=== PATIENT | female | born 1970 | race Caucasian/White ===

== ENCOUNTER 2018-04-11 10:43 | Emergency (ER) | END 2018-04-11 12:35 | disposition home or self-care (01) ==

== ENCOUNTER 2018-05-24 11:44 | Emergency (ER) | END 2018-05-24 15:50 | disposition left against medical advice (07) ==

== ENCOUNTER 2018-05-28 16:54 | Emergency (ER) | END 2018-05-28 18:59 | disposition home or self-care (01) ==

== ENCOUNTER 2018-06-14 19:37 | Emergency (ER) | END 2018-06-14 23:50 | disposition home or self-care (01) ==

== ENCOUNTER 2018-08-21 17:30 | Emergency (ER) | payer MEDICAID, OTHER ==
[~2018-08-21] VITALS: Wt 100.0 kg
[~2018-08-21 17:30] MED LIST: ACET1TAB40 PO; DIAZ5TAB PO; IBUP-1542 PO; OXYC-279 PO; TRAM50TA2 PO
[2018-08-21] MEDS ORDERED: METOPROLOL (XL) 50 MG TAB PO ONE (18:00)
--- NOTE | 2018-08-21 18:11 | ERD ---
ER Documentation Chief Complaint Chief Complaint BIB RA FROM HOME FOR PALPITATIONS, GIVEN 18 MG ADENOSINE AND CONVERT. HPI This is a 48-year-old female here for SVT/palpitations. The patient was watching TV when she suddenly felt palpitations start. The patient has a history of SVT first episode was 6 months ago and this felt similar so she called the paramedics. They arrived she was in SVT heart rate 170s. She was given 6 mg of adenosine followed by 12 mg of adenosine that converted her to sinus tachycardia with a heart rate 114. The patient had no chest pain or shortness of breath. The patient is not on any blood thinners or medications for SVT. The patient drinks to 16 ounces of [employer] energy drinks every day, sh e also smokes weed every day, denies any other drugs. Currently she is asymptomatic but seems a little anxious ROS All systems reviewed and are negative except as per history of present illness. Medications Home Meds Active Scripts Diazepam* (Valium*) 5 Mg Tablet, 5 MG PO Q8 PRN for MUSCLE SPASMS, #10 TAB Prov:HARLAN MONREAL NP 06/14/18 Oxycodone HCl/Acetaminophen (Percocet 5-325 mg Tablet) 1 Each Tablet, 1 EACH PO Q6, #7 TAB Prov:HARLAN MONREAL NP 06/14/18 Acetaminophen with Codeine (Acetaminophen-Cod #3 Tablet) 1 Each Tablet, 1 TAB PO Q6H PRN for PAIN, #10 TAB Prov:KEVIN MCKINLEY MD 05/28/18 Ibuprofen* (Motrin*) 600 Mg Tab, 600 MG PO Q6, #20 TAB Prov:KEVIN MCKINLEY MD 05/28/18 Tramadol HCl (Tramadol HCl) 50 Mg Tablet, 50 MG PO Q6 PRN for PAIN, #10 TAB Prov:MARCOS ALVAREZ PA-C 04/11/18 Allergies Allergies: Coded Allergies: levofloxacin (Verified Allergy, Unknown, 04/11/18) sulfamethoxazole (Verified Allergy, Unknown, vomit, 04/11/18) trimethoprim (Verified Allergy, Unknown, vomit, 04/11/18) PMhx/Soc History of Surgery: Yes (THYROID) Anesthesia Reaction: No Hx Neurological Disorder: No Hx Respiratory Disorders: Yes (ASTHMA) Hx Cardiac Disorders: No Hx Psychiatric Problems: No Hx Miscellaneous Medical Probl: Yes (Chronic neck, back, spine see pain management) Hx Alcohol Use: No Hx Substance Use: Yes (marijuana) Hx Tobacco Use: Yes (a pack a day) Smoking Status: Never smoker FmHx Family History: No coronary disease Physical Exam Vitals Vital Signs Date Temp Pulse Resp B/P (MAP) Pulse Ox O2 O2 Flow FiO2 Time Delivery Rate 08/21/18 122 19 112/78 100 Room Air 18:13 (89) 08/21/18 Nasal 17:43 Cannula 08/21/18 98.1 110 19 108/86 100 Room Air 17:40 (93) 08/21/18 98.1 115 19 108/86 100 17:39 (93) Physical Exam C const: Well-developed, well-nourished Head: Atraumatic, normocephalic Eyes: Normal Conjunctiva, PERRLA, EOMI, normal sclera, no nystagmus ENT: Normal External Ears, Nose and Mouth, moist mucus membranes. Neck: Full range of motion. No meningismus, no lymphadenopathy. Resp: Clear to auscultation bilaterally, no wheezing, rhonchi, rales Cardio: Sinus tachycardia, no murmurs, S1 S2 present] Abd: Soft, non tender x 4, non distended. Normal bowel sounds, no guarding or rebound, no pulsitile abdominal masses or bruits Skin: No petechiae or rashes, no ecchymosis , no maculopapular rash Back: No midline or flank tenderness Ext: No cyanosis, or edema, FROM x 4, normal inspection, neurovascularly intact x 4 Neur: Awake and alert, STR 5/5 x 4, sensation intact x 4, no focal findings, cerebellum intact Psych: Slightly anxious Result Diagram: 08/21/18 1739 08/21/18 173 Results 24 hrs Laboratory Tests Test 08/21/18 17:39 White Blood Count 8.6 10^3/ul Red Blood Count 4.87 10^6/ul Hemoglobin 14.6 g/dl Hematocrit 42.4 % Mean Corpuscular Volume 87.1 fl Mean Corpuscular Hemoglobin 30.0 pg Mean Corpuscular Hemoglobin Concent 34.4 g/dl Red Cell Distribution Width 12.6 % Platelet Count 325 10^3/UL Mean Platelet Volume 10.1 fl Immature Granulocytes % 0.300 % Neutrophils % 54.8 % Lymphocytes % 35.7 % Monocytes % 5.1 % Eosinophils % 3.3 % Basophils % 0.8 % Nucleated Red Blood Cells % 0.0 /100WBC Immature Granulocytes # 0.030 10^3/ul Neutrophils # 4.7 10^3/ul Lymphocytes # 3.1 10^3/ul Monocytes # 0.4 10^3/ul Eosinophils # 0.3 10^3/ul Basophils # 0.1 10^3/ul Nucleated Red Blood Cells # 0.0 10^3/ul Sodium Level 138 mmol/L Potassium Level 3.4 mmol/L Chloride Level 108 mmol/L Carbon Dioxide Level 22 mmol/L Anion Gap 8 Blood Urea Nitrogen 13 mg/dl Creatinine 0.97 mg/dl Est Glomerular Filtrat Rate mL/min > 60 mL/min Glucose Level 142 mg/dl Calcium Level 9.4 mg/dl Troponin I < 0.012 ng/ml Current Medications Medications Dose Sig/Leobardo Start Time Status Last (Trade) Ordered Route PRN Stop Time Admin Dose Reason Admin Metoprolol 50 mg ONCE ONCE 08/21/18 DC 08/21/18 Succinate PO 18:00 18:01 (Toprol Xl) 08/21/18 18:01 Lorazepam 1 mg ONCE ONCE 08/21/18 DC 08/21/18 (Ativan) IV 18:30 18:21 08/21/18 18:31 Procedures/MDM EKG: Rate/Rhythm: Sinus tachycardia heart rate 111 QRS, ST, QT: NORMAL [place], QRS, QT] Impression: Abnormal EKG MR #: [id number] DOS: 08/21/18 174 Ordering MD: ELAN FRIEND DO Location: E/R Room/Bed: PROCEDURE: One view chest radiograph. CLINICAL INDICATION: Chest pain. TECHNIQUE: An AP view of the chest was obtained. COMPARISON: None. FINDINGS: Mediastinum: Unremarkable. Heart size: Normal. Pulmonary vasculature: No visible engorgement. Lungs: Clear. Costophrenic sulci: Clear. Bony structures: Grossly unremarkable for age. IMPRESSION: 1. Unremarkable single view chest. RPTAT:AAJJ Physician Arjun Date Time Electronically viewed and signed by Merissa Olmos Physician on 08/21/2018 18:19 GW/ CC: ELAN FRIEND DO [id number] The patient's labs are unremarkable. I feel her symptoms are due to excess caffeine use and marijuana. We discussed her changing her lifestyle rather than put her on medication at this point. Patient feels much better at this time, and vital signs are normal, symptoms have improved. I did give strict instructions to return to the ED if symptoms continue or worsen, patient will otherwise follow-up with primary care physician. Patient understood instructions and agreed to plan. Disclaimer: Inadvertent spelling and grammatical errors are likely due to EHR/dictation software use and do not reflect on the overall quality of patient care. Also, please note that the electronic time recorded on this note does not necessarily reflect the actual time of the patient encounter. Departure Diagnosis: Primary Impression: SVT (supraventricular tachycardia) Condition: Stable ELAN FRIEND DO Aug 21, 2018 18:11
[2018-08-21] MEDS ORDERED: LORAZEPAM 2 MG INJ IV ONE (18:30)
[2018-08-21 19:45] VITALS: BP 91/62; PULSE 104; RESP 18
== END 2018-08-21 19:50 | disposition home or self-care (01) ==
LOC: E/R 17:30
DX: I47.1 Supraventricular tachycardia (principal); J45.909 Unspecified asthma, uncomplicated; Z87.891 Personal history of nicotine dependence
CPT/HCPCS: 36415; 71045; 80048; 84484; 85025; 93005; 96374; J2060; Z7502; Z7610

== ENCOUNTER 2018-10-27 22:31 | Emergency (ER) | payer OTHER ==
[~2018-10-27] VITALS: Ht 157.5 cm; Wt 90.0 kg
[2018-10-27 22:35] VITALS: Ht 157.5 cm; Wt 90.0 kg
[2018-10-27] MEDS ORDERED: SOD CHLORIDE 0.9% 1,000 ML IV STA (22:35)
--- NOTE | 2018-10-27 22:47 | ERD ---
ER Documentation Chief Complaint Chief Complaint BIB RA FROM HOME FOR SVT, RESOLVED EN ROUTE, GIVEN 6/12 OF ADENOSINE HPI 48-year-old female who presents to the emergency room with SVT. The patient has a known history of SVT. Just prior to arrival she is felt palpitations and called 911. EMS provided 6 mg then 12 mg of adenosine with cardioversion. The patient is sinus tachycardia upon arrival. The patient does admit to smoking marijuana, significant social stressors. She has not been able to follow-up with her primary care physician or scrub technician during this timeframe. She denied any chest pain or pressure. No fevers or chills. ROS All systems reviewed and are negative except as per history of present illness. Medications Home Meds Active Scripts Diazepam* (Valium*) 5 Mg Tablet, 5 MG PO Q8 PRN for MUSCLE SPASMS, #10 TAB Prov:HARLAN MONREAL NP 06/14/18 Oxycodone HCl/Acetaminophen (Percocet 5-325 mg Tablet) 1 Each Tablet, 1 EACH PO Q6, #7 TAB Prov:HARLAN MONREAL NP 06/14/18 Acetaminophen with Codeine (Acetaminophen-Cod #3 Tablet) 1 Each Tablet, 1 TAB PO Q6H PRN for PAIN, #10 TAB Prov:KEVIN MCKINLEY MD 05/28/18 Ibuprofen* (Motrin*) 600 Mg Tab, 600 MG PO Q6, #20 TAB Prov:KEVIN MCKINLEY MD 05/28/18 Tramadol HCl (Tramadol HCl) 50 Mg Tablet, 50 MG PO Q6 PRN for PAIN, #10 TAB Prov:MARCOS ALVAREZ PA-C 04/11/18 Allergies Allergies: Coded Allergies: levofloxacin (Verified Allergy, Unknown, 04/11/18) sulfamethoxazole (Verified Allergy, Unknown, vomit, 04/11/18) trimethoprim (Verified Allergy, Unknown, vomit, 04/11/18) PMhx/Soc History of Surgery: Yes (THYROID) Anesthesia Reaction: No Hx Neurological Disorder: No Hx Respiratory Disorders: Yes (ASTHMA) Hx Cardiac Disorders: No Hx Psychiatric Problems: No Hx Miscellaneous Medical Probl: Yes (Chronic neck, back, spine see pain management) Hx Alcohol Use: No Hx Substance Use: Yes (marijuana) Hx Tobacco Use: Yes (a pack a day) FmHx Family History: No diabetes Physical Exam Vitals Vital Signs Date Temp Pulse Resp B/P (MAP) Pulse Ox O2 O2 Flow FiO2 Time Delivery Rate 10/27/18 98.7 112 19 121/91 98 22:45 (101) 10/27/18 98.7 112 19 121/91 98 22:35 (101) Physical Exam General: Well developed, well nourished, no acute distress Head: Normocephalic, atraumatic. Eyes: Pupils equally reactive, EOM intact ENT: Moist mucous membranes Neck: Supple, no lymphadenopathy Respiratory: Lungs clear bilaterally, no distress Cardiovascular: Slight tachycardia, no murmurs, rubs, or gallops Abdominal: Soft, non-tender, non-distended, no peritoneal signs : Deferred MSK: No edema, no unilateral swelling, 5/5 strength Neurologic: Alert and oriented, moving all extremities, normal speech, no focal weakness, no cerebellar signs Skin: No rash Psych: Normal mood Result Diagram: 10/27/18 2310 Results 24 hrs Laboratory Tests Test 10/27/18 23:10 Sodium Level 143 mmol/L Potassium Level 3.4 mmol/L Chloride Level 111 mmol/L Carbon Dioxide Level 25 mmol/L Anion Gap 7 Blood Urea Nitrogen 11 mg/dl Creatinine 0.88 mg/dl Est Glomerular Filtrat Rate mL/min > 60 mL/min Glucose Level 82 mg/dl Calcium Level 9.1 mg/dl Magnesium Level 1.9 mg/dl Current Medications Medications Dose Sig/Leobardo Start Time Status Last (Trade) Ordered Route PRN Stop Time Admin Dose Reason Admin Sodium 1,000 ml @ Q1H STAT 10/27/18 DC Chloride 1,000 mls/hr IV 22:35 10/27/18 23:34 Lorazepam 1 mg ONCE ONCE 10/28/18 DC 10/28/18 (Ativan) IV 00:00 10/28/18 00:03 00:01 Potassium 20 meq ONCE STAT 10/28/18 DC Chloride PO 00:15 10/28/18 (Klor-Con 20) 00:17 Procedures/MDM EKG, MONITORS, & DIAGNOSTIC IMAGING: Rhythm strip: Via EMS Rate/Rhythm: SVT with conversion to normal sinus rhythm Impression: SVT with conversion EKG: I reviewed and interpreted a 12-lead EKG. Rhythm: sinus tachycardia ST Changes: No contiguous ST segment elevations T waves: No contiguous T wave inversions Impression: No evidence of acute cardiac ischemia LAB INTERPRETATION: I reviewed the laboratory testing and it shows slightly low potassium MEDICAL DECISION MAKING: The patient's presentation is consistent with an exacerbation of SVT with conversion secondary to adenosine via EMS. Patient is asymptomatic currently. Possible triggers including stress, underlying reentrant tachycardia. Patient exhibits no chest pain, no signs or symptoms concerning for cardiac ischemia. The patient is to follow-up with a scrub technician and is currently in the process of doing so. The patient has no evidence of endorgan dysfunction. I believe checking electrolytes will be appropriate for any replacement therapy needed. No indication for troponin, chest x-ray therapy. No signs of infection no indication for CBC. No evidence of anemia. Risk reduction techniques discussed. ER COURSE: * Patient asked for anxiolysis. Ativan provided. Vital signs improved. Patient given oral potassium. * At this point the patient can be safely discharged with outpatient primary care follow-up. I do not feel comfortable initiating beta-neto therapy. The patient needs to be followed up with primary scrub technician. Return precautions discussed and understood. CONSULTATION: None DISPOSITION PLAN: The patient does not have an identifiable emergent medical condition that warrants inpatient hospitalization at this time. The patient is deemed safe for discharge with outpatient follow-up. We discussed follow up with the patient's primary care doctor within 24 to 48 hours as needed. We also discussed return to the emergency room for worsening symptoms or worsening condition. Outpatient referral: Cardiology Discharge Medications: None required Departure Diagnosis: Primary Impression: SVT (supraventricular tachycardia) Additional Impression: Hypokalemia Condition: Stable BORIS MARTIN MD October 27, 2018 22:47
[2018-10-28] MEDS ORDERED: LORAZEPAM 2 MG INJ IV ONE
[2018-10-28] MEDS ORDERED: POTASSIUM CHLORIDE (SR) 20 MEQ TAB PO STA (00:15)
[2018-10-28 00:38] VITALS: BP 145/78; PULSE 88; RESP 16
== END 2018-10-28 00:43 | disposition home or self-care (01) ==
LOC: E/R 22:31
DX: I47.1 Supraventricular tachycardia (principal); J45.909 Unspecified asthma, uncomplicated; F17.210 Nicotine dependence, cigarettes, uncomplicated; E87.6 Hypokalemia
CPT/HCPCS: 80048; 83735; 93005; 96374; J2060; J7030; Z7502; Z7610

== ENCOUNTER 2018-10-31 14:33 | Emergency (ER) | payer OTHER ==
[~2018-10-31] VITALS: Ht 165.1 cm; Wt 90.0 kg
[2018-10-31 14:41] VITALS: Ht 165.1 cm; Wt 90.0 kg
[2018-10-31] MEDS ORDERED: SOD CHLORIDE 0.9% 1,000 ML IV STA (14:51)
[2018-10-31] MEDS ORDERED: morphine 4 MG/ML VIAL IV STA (14:51)
[2018-10-31] MEDS ORDERED: ONDANSETRON 4 MG INJ IV STA ×2 (14:51→16:11)
[2018-10-31] MEDS ORDERED: LORAZEPAM 2 MG INJ IV ONE (15:00)
[2018-10-31] MEDS ORDERED: HYDROmorphONE 1 MG/ML SYG IV STA (16:11)
--- NOTE | 2018-10-31 16:15 | ERD ---
ER Documentation Chief Complaint Chief Complaint SVT, CONVERTED EN ROUTE TO H HPI This is a 48-year-old female who has a history of SVT with multiple exacerbations and has been here multiple times for the same. She says she is not on any medication. She states that she was laying in bed and she rolled over and she felt her heart racing and she called paramedics who found her in SVT. She was given adenosine with conversion to a normal sinus rhythm/sinus tachycardia. The patient denied having any chest pain or breathing difficulty. She says she is feeling anxious at this time and has a headache from the adenosine ROS All systems reviewed and are negative except as per history of present illness. Medications Home Meds Discontinued Scripts Diazepam* (Valium*) 5 Mg Tablet, 5 MG PO Q8 PRN for MUSCLE SPASMS, #10 TAB Prov:HARLAN MONREAL NP 06/14/18 Oxycodone HCl/Acetaminophen (Percocet 5-325 mg Tablet) 1 Each Tablet, 1 EACH PO Q6, #7 TAB Prov:HARLAN MONREAL NP 06/14/18 Acetaminophen with Codeine (Acetaminophen-Cod #3 Tablet) 1 Each Tablet, 1 TAB PO Q6H PRN for PAIN, #10 TAB Prov:KEVIN MCKINLEY MD 05/28/18 Ibuprofen* (Motrin*) 600 Mg Tab, 600 MG PO Q6, #20 TAB Prov:KEVIN MCKINLEY MD 05/28/18 Tramadol HCl (Tramadol HCl) 50 Mg Tablet, 50 MG PO Q6 PRN for PAIN, #10 TAB Prov:MARCOS ALVAREZ PA-C 04/11/18 Allergies Allergies: Coded Allergies: levofloxacin (Unverified Allergy, Unknown, 10/28/18) sulfamethoxazole (Unverified Allergy, Unknown, vomit, 10/28/18) trimethoprim (Unverified Allergy, Unknown, vomit, 10/28/18) PMhx/Soc History of Surgery: Yes (THYROID) Anesthesia Reaction: No Hx Neurological Disorder: No Hx Respiratory Disorders: Yes (ASTHMA) Hx Cardiac Disorders: No Hx Psychiatric Problems: No Hx Miscellaneous Medical Probl: Yes (Chronic neck, back, spine see pain management) Hx Alcohol Use: No Hx Substance Use: Yes (marijuana) Hx Tobacco Use: Yes (a pack a day) Smoking Status: Current every day smoker FmHx Family History: No coronary disease Physical Exam Vitals Vital Signs Date Temp Pulse Resp B/P (MAP) Pulse Ox O2 O2 Flow FiO2 Time Delivery Rate 10/31/18 Nasal 2 15:14 Cannula 10/31/18 98.6 108 16 116/80 99 14:41 (92) Physical Exam Const: Well-developed, well-nourished Head: Atraumatic, normocephalic Eyes: Normal Conjunctiva, PERRLA, EOMI, normal sclera, no nystagmus ENT: Normal External Ears, Nose and Mouth, moist mucus membranes. Neck: Full range of motion. No meningismus, no lymphadenopathy. Resp: Clear to auscultation bilaterally, no wheezing, rhonchi, rales Cardio: Tachycardia, no murmurs, S1 S2 present] Abd: Soft, non tender x 4, non distended. Normal bowel sounds, no guarding or rebound, no pulsitile abdominal masses or bruits Skin: No petechiae or rashes, no ecchymosis , no maculopapular rash Back: No midline or flank tenderness Ext: No cyanosis, or edema, FROM x 4, normal inspection, neurovascularly intact x 4 Neur: Awake and alert, STR 5/5 x 4, sensation intact x 4, no focal findings, cerebellum intact Psych: Normal Mood and Affect Result Diagram: 10/31/18 1503 Results 24 hrs Laboratory Tests Test 10/31/18 15:03 Sodium Level 143 mmol/L Potassium Level 3.7 mmol/L Chloride Level 114 mmol/L Carbon Dioxide Level 24 mmol/L Anion Gap 5 Blood Urea Nitrogen 9 mg/dl Creatinine 0.75 mg/dl Est Glomerular Filtrat Rate mL/min > 60 mL/min Glucose Level 84 mg/dl Calcium Level 9.2 mg/dl Troponin I < 0.012 ng/ml Current Medications Medications Dose Sig/Leobardo Start Time Status Last (Trade) Ordered Route PRN Stop Time Admin Dose Reason Admin Sodium 1,000 ml @ Q1H STAT 10/31/18 DC 10/31/18 Chloride 1,000 mls/hr IV 14:51 10/31/18 15:07 15:50 Morphine 4 mg ONCE STAT 10/31/18 DC 10/31/18 Sulfate IV 14:51 10/31/18 15:08 (morphine) 14:53 Ondansetron 4 mg ONCE STAT 10/31/18 DC 10/31/18 HCl (Zofran IV 14:51 10/31/18 15:08 Inj) 14:53 Lorazepam 1 mg ONCE ONCE 10/31/18 DC 10/31/18 (Ativan) IV 15:00 10/31/18 15:08 15:01 Procedures/MDM EKG: Rate/Rhythm: Sinus tachycardia QRS, ST, QT: NORMAL [place], QRS, QT] Impression: NORMAL EKG MR #: [id number] DOS: 10/31/18 1451 Ordering MD: ELAN FRIEND DO Location: E/R Room/Bed: PROCEDURE: XR Chest. CLINICAL INDICATION: chest pain TECHNIQUE: Single frontal view of the chest was obtained COMPARISON: 08/21/2018 FINDINGS: The heart and mediastinum are within normal limits. The lungs are clear. There is no pleural effusion or pneumothorax. RPTAT: AA IMPRESSION: No acute disease. .Stephen Bess MD, MD Date Time Electronically viewed and signed by .Stephen Bess MD, MD on 10/31/2018 15:47 .S/ CC: ELAN FRIEND DO [id number] The patient is in a sinus tachycardia VT. She is not on medication so I will start a calcium channel neto Cardiac work-up is negative Departure Diagnosis: Primary Impression: SVT (supraventricular tachycardia) Condition: Stable ELAN FRIEND DO October 31, 2018 16:15
[2018-10-31] MEDS ORDERED: DILT120T PO (16:16)
[2018-10-31 16:43] VITALS: BP 116/88; PULSE 98; RESP 20
== END 2018-10-31 16:45 | disposition home or self-care (01) ==
LOC: E/R 14:33
DX: I47.1 Supraventricular tachycardia (principal); J45.909 Unspecified asthma, uncomplicated; F17.210 Nicotine dependence, cigarettes, uncomplicated
CPT/HCPCS: 36415; 71045; 80048; 84484; 93005; 96374; 96375; 96376; J1170; J2060; J2270; J2405; J7030; Z7502